=== PATIENT | male | born 1950 | race Caucasian/White ===

== ENCOUNTER 2023-12-29 13:42 | Inpatient (IN) | payer OTHER, MEDICARE ==
[~2023-12-29] VITALS: Ht 177.8 cm; Wt 52.2 kg
[2023-12-29 16:28] LABS: BILIRUBIN,URINE NEGATIVE (Neg); CLARITY,URINE CLEAR (Clear); COLOR,URINE YELLOW (Yellow); GLUCOSE, URINE NEGATIVE (Neg); KETONES,URINE NEGATIVE (Neg); LEUKOCYTE ESTERASE ,URINE NEGATIVE (Neg); NITRITES, URINE NEGATIVE (Neg); OCCULT BLOOD,URINE NEGATIVE (Neg); PH,URINE 7.5 (4.8-8.0); PROTEIN,URINE NEGATIVE (Neg); UROBILINOGEN,URINE 0.2 E.U/dL (0.2-1.0)
[2023-12-29 16:29] LABS: BASOPHILS # (AUTO) 0.1 X10'3 (0-0.2); EOSINOPHILS # (AUTO) 0.2 X10'3 (0-0.9); EOSINOPHILS % (AUTO) 1.8 % (0-6); HEMATOCRIT 42.8 % (42.0-52.0); HEMOGLOBIN 14.5 g/dl (14.0-17.9); LYMPHOCYTES # (AUTO) 1.2 X10'3 (1.1-4.8); LYMPHOCYTES % (AUTO) 13.7 % (21-51); MEAN CORPUSCULAR HEMOGLOBIN 32.9 PG (27.0-31.0); MEAN CORPUSCULAR HGB CONC 33.8 g/dL (33.0-36.5); MEAN CORPUSCULAR VOLUME 97.2 FL (78-98); MEAN PLATELET VOLUME 8.4 FL (7.4-10.4); MONOCYTES # (AUTO) 0.8 X10'3 (0-0.9); MONOCYTES % (AUTO) 8.7 % (2-12); NEUTROPHILS # (AUTO) 6.6 X10'3 (1.8-7.7); NEUTROPHILS % (AUTO) 74.8 % (42-75); PLATELET COUNT 307 X10'3 (140-440); RED CELL DISTRIBUTION WIDTH 13.9 % (11.5-14.5); WHITE BLOOD COUNT 8.8 X10'3 (4.5-11.0)
[2023-12-29 16:33] LABS: UA COLLECTION TYPE CLN CATCH MIDSTREAM
[2023-12-29 16:54] LABS: ALBUMIN 3.7 G/DL (3.4-5.0); ANION GAP 7 (8-16); BLOOD UREA NITROGEN 9 MG/DL (7-18); BUN/CREATININE RATIO 9.2 (10.0-20.0); CALCIUM 8.7 MG/DL (8.5-10.1); CHLORIDE 101 MMOL/L (99-107); CREATININE 0.98 MG/DL (0.60-1.10); GLUCOSE 96 MG/DL (70-104); MAGNESIUM 2.3 MG/DL (1.5-2.4); POTASSIUM 3.6 MMOL/L (3.5-5.1); PRO BRAIN NATRIURETIC PEPTIDE 204 PG/ML (0-450); SODIUM 138 MMOL/L (135-145); TOTAL CARBON DIOXIDE 29.8 MMOL/L (24-32); eCRCL 48 ML/MIN; eGFR 75 ML/MIN
[2023-12-29] MEDS ORDERED: heparin 10,000 units/1 ML INJ IV PRN (18:00)
[2023-12-29] MEDS ORDERED: iohexol 350MG/ML 100ml bottle IV ONE (18:05)
[2023-12-29] MEDS ORDERED: iohexol 350 MG/ML 50ML vial IV ONE (18:05)
[2023-12-29 18:28] LABS: APTT 24 SECONDS (22-32); INR 0.9 INR; PROTHROMBIN TIME 9.8 SECONDS (9.0-12.0)
[2023-12-29] MEDS: heparin 10,000 units/1 ML INJ IV ONE ×2 (18:46→18:48)
[2023-12-29] MEDS: heparin 25,000 UNIT/250ml bag 250 ML IV PRN (18:47)
[2023-12-29] MEDS: MESSAGE TO NURSING IV ONE (18:48)
[2023-12-29] MEDS ORDERED: ASPI-611 PO (19:08)
[2023-12-29] MEDS ORDERED: AMLO5TAB PO (19:08)
[2023-12-29] MEDS ORDERED: magnesium sulf-water 2g/50mL 50 ML IV PRN (20:40)
[2023-12-29] MEDS ORDERED: potassium Cl 20 mEq SR tablet PO PRN ×2 (20:40)
[2023-12-29] MEDS ORDERED: potassium Cl 40MEQ/1/2NS 520ml 520 ML IV PRN (20:40)
[2023-12-29] MEDS ORDERED: mag hydrox/Alum hydrox/simeth 30ml oral suspension PO PRN (20:40)
[2023-12-29] MEDS ORDERED: acetaminophen 325mg tablet PO PRN (20:40)
[2023-12-29] MEDS ORDERED: magnesium sulf-water 4G/100mL 100 ML IV PRN (20:40)
[2023-12-29] MEDS ORDERED: magnesium Cl slow-release 64mg tablet PO PRN (20:40)
[2023-12-29] MEDS ORDERED: ondansetron/PF 4mg/2ml inj IV PRN (20:40)
[2023-12-29] MEDS ORDERED: HYDROcodone/acetaminophen 5mg/325mg tablet PO PRN (20:40)
[2023-12-29 20:57] LABS: ALANINE AMINOTRANSFERASE 24 U/L (12-78); ALBUMIN/GLOBULIN RATIO 1.1 (1.1-1.5); ALKALINE PHOSPHATASE 52 IU/L (46-116); ASPARTATE AMINO TRANSFERASE 24 U/L (10-37); BILIRUBIN,DIRECT 0.2 MG/DL (0-0.3); BILIRUBIN,TOTAL 0.7 MG/DL (0.1-1.0); TOTAL PROTEIN 7.1 G/DL (6.4-8.2)
[2023-12-29 21:07] LABS: HEMOGLOBIN A1C 5.5 % (4.5-6.2)
[2023-12-30] VITALS (15 sets, daily range): BP systolic 124–171; BP diastolic 58–85; PULSE 78–104; RESP 8–16; TEMP 96.8–98; O2SAT 98–100
[2023-12-30 01:30] LABS: PROTHROMBIN TIME 10.4 SECONDS (9.0-12.0)
[2023-12-30] MEDS: MESSAGE TO NURSING IV ONE ×2 (02:18→15:20)
[2023-12-30] MEDS: K and/or MAG REPLACEMENT MC SCH (07:44)
[2023-12-30] MEDS: docusate sod 100mg capsule PO SCH (08:00)
[2023-12-30] MEDS ORDERED: nicotine 21mg patch - 24 hr TD SCH (08:00)
[2023-12-30] MEDS: amLODIPine 5mg tablet PO SCH (08:09)
[2023-12-30] MEDS: nicotine 21mg patch - 24 hr TD SCH (08:09)
[2023-12-30 08:33] LABS: BASOPHILS # (AUTO) 0.1 X10'3 (0-0.2); EOSINOPHILS # (AUTO) 0.3 X10'3 (0-0.9); EOSINOPHILS % (AUTO) 3.8 % (0-6); HEMATOCRIT 44.2 % (42.0-52.0); HEMOGLOBIN 14.7 g/dl (14.0-17.9); LYMPHOCYTES # (AUTO) 1.1 X10'3 (1.1-4.8); LYMPHOCYTES % (AUTO) 16.7 % (21-51); MEAN CORPUSCULAR HEMOGLOBIN 32.5 PG (27.0-31.0); MEAN CORPUSCULAR HGB CONC 33.2 g/dL (33.0-36.5); MEAN CORPUSCULAR VOLUME 97.9 FL (78-98); MEAN PLATELET VOLUME 9.2 FL (7.4-10.4); MONOCYTES # (AUTO) 0.6 X10'3 (0-0.9); MONOCYTES % (AUTO) 9.2 % (2-12); NEUTROPHILS # (AUTO) 4.7 X10'3 (1.8-7.7); NEUTROPHILS % (AUTO) 69.3 % (42-75); PLATELET COUNT 297 X10'3 (140-440); RED BLOOD COUNT 4.51 X10'6 (4.70-6.10); RED CELL DISTRIBUTION WIDTH 14.3 % (11.5-14.5); WHITE BLOOD COUNT 6.8 X10'3 (4.5-11.0)
[2023-12-30 08:49] LABS: ALBUMIN 3.5 G/DL (3.4-5.0); ANION GAP 9 (8-16); BLOOD UREA NITROGEN 9 MG/DL (7-18); BUN/CREATININE RATIO 10.1 (10.0-20.0); CALCIUM 8.8 MG/DL (8.5-10.1); CHLORIDE 100 MMOL/L (99-107); CHOL/HDL RATIO 1.4 (0.00-4.99); CHOLESTEROL 173 MG/DL (0-200); CREATININE 0.89 MG/DL (0.60-1.10); GLUCOSE 92 MG/DL (70-104); HDL CHOLESTEROL 125 MG/DL (35-60); LDL CHOLESTEROL 48 MG/DL (50-100); MAGNESIUM 2.2 MG/DL (1.5-2.4); PHOSPHORUS 3.4 MG/DL (2.3-4.5); POTASSIUM 4.3 MMOL/L (3.5-5.1); SODIUM 137 MMOL/L (135-145); TOTAL CARBON DIOXIDE 27.9 MMOL/L (24-32); TRIGLYCERIDES 41 MG/DL (20-135); eCRCL 53 ML/MIN; eGFR 83 ML/MIN
[2023-12-30] MEDS ORDERED: heparin 10,000 units/1 ML INJ ONE ×2 (16:04→16:05)
[2023-12-30] MEDS ORDERED: sevoflurane 250ml liquid IH ONE (17:17)
[2023-12-30] MEDS ORDERED: morphine 4 MG/ML inj SYRINge IV PRN (17:20)
[2023-12-30] MEDS ORDERED: proCHLORperazine 10 MG/2 ml inj IV PRN (17:20)
[2023-12-30] MEDS ORDERED: labetalol 20mg/4ml (5mg/ml) syringe IV PRN (17:20)
[2023-12-30] MEDS ORDERED: ondansetron/PF 4mg/2ml inj IV PRN ×2 (17:20→20:30)
[2023-12-30] MEDS ORDERED: morphine 2 MG/ML inj. syringe IV PRN (17:20)
[2023-12-30] MEDS ORDERED: enalaprilat dihydrate 2.5mg/2ml vial IV PRN (17:20)
[2023-12-30] MEDS ORDERED: meperidine/PF 25mg/ml syringe IV PRN ×3 (17:20)
[2023-12-30] MEDS ORDERED: midazolam 1 mg/ML 2ml injection ONE (17:21)
[2023-12-30] MEDS ORDERED: fentaNYL /PF 50mcg/ml 5ml ampule ONE (17:21)
[2023-12-30] MEDS ORDERED: propofol inj 20 ML IV ONE (17:26)
[2023-12-30] MEDS ORDERED: LIDOcaine 2% (20mg/ml) 5ml vial ONE (17:26)
[2023-12-30] MEDS ORDERED: dexamethasone sod phosphate 4mg/ml inj. ONE (17:36)
[2023-12-30] MEDS ORDERED: ceFAZolin 1000mg inj ONE ×2 (17:45)
[2023-12-30] MEDS ORDERED: heparin 1,000unit/ml 10ml vial 10 ML ONE (18:04)
[2023-12-30] MEDS ORDERED: albumin (Human) 5% 250ml 250 ML IV ONE (18:21)
[2023-12-30 19:42] LABS: APTT > 139 SECONDS (22-32)
[2023-12-30] MEDS ORDERED: neostigmine methylsulfate 1 MG/ML 10ml vial ONE (20:09)
[2023-12-30] MEDS ORDERED: glycopyrrolate 0.2mg/ml inj ONE (20:09)
[2023-12-30] MEDS ORDERED: HYDROcodone/acetaminophen 10/325mg tab PO PRN (20:30)
[2023-12-30] MEDS ORDERED: naloxone 0.4 mg/ml inj IV PRN (20:30)
[2023-12-30] MEDS ORDERED: HYDROmorphone inj. 0.5 MG/0.5 ML DISP.SYRIN IV PRN (20:30)
[2023-12-30] MEDS: ringers solution, lacted 1,000 ML IV SCH (20:46)
[2023-12-30] MEDS: potassium CL 20mEq in D5-1/2NS 1,000 ML IV SCH (21:11)
[2023-12-30] MEDS: ceFAZolin/D5W- 1GM premix 50 ML IV SCH (23:57)
[2023-12-31] VITALS (18 sets, daily range): BP systolic 107–139; BP diastolic 51–76; PULSE 68–92; RESP 10–18; TEMP 97.2–99.1; O2SAT 82–100
[2023-12-31] MEDS ORDERED: ceFAZolin inj. 1,000 MG in dextrose 5%-water 50ml 50 ML IV SCH
[2023-12-31 06:03] LABS: BASOPHILS % (AUTO) 0.2 % (0-1); EOSINOPHILS % (AUTO) 0 % (0-6); HEMATOCRIT 35.5 % (42.0-52.0); HEMOGLOBIN 12.1 g/dl (14.0-17.9); LYMPHOCYTES # (AUTO) 0.5 X10'3 (1.1-4.8); LYMPHOCYTES % (AUTO) 5.4 % (21-51); MEAN CORPUSCULAR HEMOGLOBIN 33.3 PG (27.0-31.0); MEAN CORPUSCULAR HGB CONC 34.1 g/dL (33.0-36.5); MEAN CORPUSCULAR VOLUME 97.8 FL (78-98); MEAN PLATELET VOLUME 8.9 FL (7.4-10.4); MONOCYTES # (AUTO) 0.8 X10'3 (0-0.9); NEUTROPHILS # (AUTO) 8.6 X10'3 (1.8-7.7); NEUTROPHILS % (AUTO) 86.4 % (42-75); PLATELET COUNT 253 X10'3 (140-440); RED BLOOD COUNT 3.63 X10'6 (4.70-6.10); WHITE BLOOD COUNT 9.9 X10'3 (4.5-11.0)
[2023-12-31 06:13] LABS: PROTHROMBIN TIME 10.5 SECONDS (9.0-12.0)
[2023-12-31 06:16] LABS: ALBUMIN 2.6 G/DL (3.4-5.0); ANION GAP 6 (8-16); BLOOD UREA NITROGEN 9 MG/DL (7-18); BUN/CREATININE RATIO 9.7 (10.0-20.0); CALCIUM 7.8 MG/DL (8.5-10.1); CHLORIDE 100 MMOL/L (99-107); CREATININE 0.93 MG/DL (0.60-1.10); GLUCOSE 185 MG/DL (70-104); MAGNESIUM 1.8 MG/DL (1.5-2.4); PHOSPHORUS 3.4 MG/DL (2.3-4.5); POTASSIUM 4.3 MMOL/L (3.5-5.1); SODIUM 134 MMOL/L (135-145); TOTAL CARBON DIOXIDE 28.4 MMOL/L (24-32); eCRCL 51 ML/MIN; eGFR 79 ML/MIN
[2023-12-31] MEDS: apixaban 5mg tablet PO SCH (20:24)
[2024-01-01] VITALS (7 sets, daily range): BP systolic 125–134; BP diastolic 62–70; PULSE 83–88; RESP 14–16; TEMP 97.3–99.3; O2SAT 97–99
[2024-01-01 07:33] LABS: BASOPHILS % (AUTO) 0.2 % (0-1); EOSINOPHILS % (AUTO) 0.3 % (0-6); HEMATOCRIT 34.2 % (42.0-52.0); HEMOGLOBIN 11.5 g/dl (14.0-17.9); LYMPHOCYTES % (AUTO) 10.8 % (21-51); MEAN CORPUSCULAR HEMOGLOBIN 32.7 PG (27.0-31.0); MEAN CORPUSCULAR HGB CONC 33.6 g/dL (33.0-36.5); MEAN CORPUSCULAR VOLUME 97.4 FL (78-98); MEAN PLATELET VOLUME 8.7 FL (7.4-10.4); MONOCYTES # (AUTO) 1.5 X10'3 (0-0.9); MONOCYTES % (AUTO) 15.5 % (2-12); NEUTROPHILS % (AUTO) 73.2 % (42-75); PLATELET COUNT 233 X10'3 (140-440); RED BLOOD COUNT 3.52 X10'6 (4.70-6.10); RED CELL DISTRIBUTION WIDTH 13.9 % (11.5-14.5); WHITE BLOOD COUNT 9.5 X10'3 (4.5-11.0)
[2024-01-01 07:36] LABS: ALBUMIN 2.4 G/DL (3.4-5.0); ANION GAP 6 (8-16); BLOOD UREA NITROGEN 8 MG/DL (7-18); CALCIUM 7.8 MG/DL (8.5-10.1); CHLORIDE 101 MMOL/L (99-107); CREATININE 0.89 MG/DL (0.60-1.10); GLUCOSE 109 MG/DL (70-104); MAGNESIUM 1.7 MG/DL (1.5-2.4); PHOSPHORUS 3.2 MG/DL (2.3-4.5); SODIUM 133 MMOL/L (135-145); TOTAL CARBON DIOXIDE 26.4 MMOL/L (24-32); eCRCL 53 ML/MIN; eGFR 83 ML/MIN
[2024-01-01 07:50] LABS: PROTHROMBIN TIME 10.7 SECONDS (9.0-12.0)
[2024-01-01] MEDS: aspirin 325mg tablet, delayed-release (Ecotrin) PO SCH (08:35)
[2024-01-01 08:53] LABS: PLATELET ESTIMATE NORMAL; TOTAL CELLS COUNTED 100
[2024-01-01 08:54] LABS: ACANTHOCYTES FEW; SCHISTOCYTES FEW
[2024-01-01] MEDS: ceFOXitin 1 GM/D5W 50mL IVPB 50 ML IV SCH ×2 (12:37→18:09)
[2024-01-02 02:00] VITALS: BP 130/62; PULSE 89; RESP 14; TEMP 97.6; O2SAT 98
[2024-01-02 06:00] VITALS: BP 123/62; PULSE 81; RESP 18; TEMP 98.5; O2SAT 96
[2024-01-02 06:53] LABS: BASOPHILS % (AUTO) 0.2 % (0-1); EOSINOPHILS % (AUTO) 0.3 % (0-6); HEMATOCRIT 35.1 % (42.0-52.0); INR 1.1 INR; LYMPHOCYTES % (AUTO) 8.4 % (21-51); MEAN CORPUSCULAR HEMOGLOBIN 33.3 PG (27.0-31.0); MEAN CORPUSCULAR HGB CONC 34.3 g/dL (33.0-36.5); MEAN PLATELET VOLUME 8.7 FL (7.4-10.4); MONOCYTES # (AUTO) 1.6 X10'3 (0-0.9); MONOCYTES % (AUTO) 13.9 % (2-12); NEUTROPHILS # (AUTO) 8.7 X10'3 (1.8-7.7); NEUTROPHILS % (AUTO) 77.2 % (42-75); PLATELET COUNT 234 X10'3 (140-440); PROTHROMBIN TIME 11.2 SECONDS (9.0-12.0); RED BLOOD COUNT 3.62 X10'6 (4.70-6.10); RED CELL DISTRIBUTION WIDTH 13.7 % (11.5-14.5); WHITE BLOOD COUNT 11.2 X10'3 (4.5-11.0)
[2024-01-02 06:55] LABS: ALBUMIN 2.2 G/DL (3.4-5.0); ANION GAP 8 (8-16); BLOOD UREA NITROGEN 11 MG/DL (7-18); BUN/CREATININE RATIO 13.6 (10.0-20.0); CALCIUM 8.7 MG/DL (8.5-10.1); CHLORIDE 100 MMOL/L (99-107); CREATININE 0.81 MG/DL (0.60-1.10); GLUCOSE 107 MG/DL (70-104); MAGNESIUM 1.8 MG/DL (1.5-2.4); PHOSPHORUS 3.9 MG/DL (2.3-4.5); POTASSIUM 4.2 MMOL/L (3.5-5.1); SODIUM 133 MMOL/L (135-145); TOTAL CARBON DIOXIDE 25.5 MMOL/L (24-32); eCRCL 58 ML/MIN; eGFR > 90 ML/MIN
[2024-01-02 08:00] VITALS: RESP 18; O2SAT 96
[2024-01-02 11:00] VITALS: BP 118/58; PULSE 82; RESP 15; TEMP 99; O2SAT 98
[2024-01-02] MEDS: lactose-reduced food (Ensure Enlive) - 237ml bottle PO SCH (13:00)
[2024-01-02] MEDS: magnesium hydroxide 30ml (MOM) UD suspension PO PRN (13:09)
[2024-01-05] MEDS ORDERED: DOXY100C43 PO (16:55)
== END 2024-01-02 15:13 | DRG 254 ==
LOC: ER 13:44 → ED HOLD 20:41 → EDBEDREQ 12-30 06:58 → ORTHO 4S 12-30 07:37 → CICU 2S 12-30 21:44 → PCU 3S 12-31 12:18
PROVIDERS: ADMIT Internal Medicine Critical Care Medicine; ATTEND Internal Medicine
PROC: B4201ZZ Computerized Tomography (CT Scan) of Abdominal Aorta using Low Osmolar Contrast (ICD-10-PCS; 2023-12-29)
PROC: B4241ZZ Computerized Tomography (CT Scan) of Superior Mesenteric Artery using Low Osmolar Contrast (ICD-10-PCS; 2023-12-29)
PROC: B4281ZZ Computerized Tomography (CT Scan) of Bilateral Renal Arteries using Low Osmolar Contrast (ICD-10-PCS; 2023-12-29)
PROC: B42C1ZZ Computerized Tomography (CT Scan) of Pelvic Arteries using Low Osmolar Contrast (ICD-10-PCS; 2023-12-29)
PROC: B42H1ZZ Computerized Tomography (CT Scan) of Bilateral Lower Extremity Arteries using Low Osmolar Contrast (ICD-10-PCS; 2023-12-29)
PROC: B4211ZZ Computerized Tomography (CT Scan) of Celiac Artery using Low Osmolar Contrast (ICD-10-PCS; 2023-12-29)
PROC: B42H1ZZ Computerized Tomography (CT Scan) of Bilateral Lower Extremity Arteries using Low Osmolar Contrast (ICD-10-PCS; 2023-12-29)
PROC: 04CK0ZZ Extirpation of Matter from Right Femoral Artery, Open Approach (ICD-10-PCS; 2023-12-30)
PROC: 041K0JL Bypass Right Femoral Artery to Popliteal Artery with Synthetic Substitute, Open Approach (ICD-10-PCS; principal; 2023-12-30 17:17)
DX: I73.9 Peripheral vascular disease, unspecified (principal); F17.210 Nicotine dependence, cigarettes, uncomplicated; L60.0 Ingrowing nail; I10 Essential (primary) hypertension; Z88.8 Allergy status to other drugs, medicaments and biological substances; Z91.018 Allergy to other foods; Z79.82 Long term (current) use of aspirin; Z79.899 Other long term (current) drug therapy
CPT/HCPCS: 36415; 71045; 73590; 75635; 76000; 80048; 80061; 80076; 81003; 82948; 83036; 83735; 83880; 84100; 84145; 84484; 85007; 85025; 85610; 85730; 86885; 86900; 86901; 87081; 93306; 93922; 93926; 93970; 96365; 97116; 97161; 97530; 99285; A4618; A6213; A6258; A6449; A6455; A7000; A9272; C1757; C1758; C1768; G0378; J0690; J0694; J1100; J1644; J2003; J2250; J2704; J2710; J3010; J3480; J3490; J7030; J7040; J7120; P9045; Q9967

== ENCOUNTER 2024-05-20 17:37 | Inpatient (IN) | payer OTHER, MEDICARE, MEDICAID ==
[~2024-05-20] VITALS: Ht 177.8 cm; Wt 45.5 kg
[~2024-05-20 17:37] MED LIST: AMLO5TAB PO; ASPI-611 PO
[2024-05-20] MEDS ORDERED: heparin 10,000 units/1 ML INJ IV PRN ×2 (21:05→21:10)
[2024-05-20] MEDS ORDERED: heparin 25,000 UNIT/250ml bag 250 ML IV PRN (21:10)
[2024-05-20] MEDS ORDERED: heparin 10,000 units/1 ML INJ IV ONE (21:10)
[2024-05-20 21:20] LABS: BASOPHILS % (AUTO) 0.4 % (0-1); EOSINOPHILS % (AUTO) 0.1 % (0-6); HEMATOCRIT 41.5 % (42.0-52.0); HEMOGLOBIN 14.1 g/dl (14.0-17.9); LYMPHOCYTES # (AUTO) 1.2 X10'3 (1.1-4.8); LYMPHOCYTES % (AUTO) 9.9 % (21-51); MEAN CORPUSCULAR HEMOGLOBIN 30.8 PG (27.0-31.0); MEAN CORPUSCULAR VOLUME 90.6 FL (78-98); MEAN PLATELET VOLUME 8.6 FL (7.4-10.4); MONOCYTES # (AUTO) 1.3 X10'3 (0-0.9); MONOCYTES % (AUTO) 11.1 % (2-12); NEUTROPHILS # (AUTO) 9.2 X10'3 (1.8-7.7); NEUTROPHILS % (AUTO) 78.5 % (42-75); PLATELET COUNT 222 X10'3 (140-440); RED BLOOD COUNT 4.58 X10'6 (4.70-6.10); RED CELL DISTRIBUTION WIDTH 14.7 % (11.5-14.5); WHITE BLOOD COUNT 11.8 X10'3 (4.5-11.0)
[2024-05-20 21:29] LABS: ALBUMIN 3.4 G/DL (3.4-5.0); ANION GAP 6 (8-16); BLOOD UREA NITROGEN 10 MG/DL (7-18); BUN/CREATININE RATIO 10.6 (10.0-20.0); CALCIUM 8.6 MG/DL (8.5-10.1); CHLORIDE 100 MMOL/L (99-107); CREATININE 0.94 MG/DL (0.60-1.10); GLUCOSE 97 MG/DL (70-104); POTASSIUM 3.9 MMOL/L (3.5-5.1); SODIUM 135 MMOL/L (135-145); TOTAL CARBON DIOXIDE 28.9 MMOL/L (24-32); eCRCL 44 ML/MIN; eGFR 78 ML/MIN
[2024-05-20] MEDS ORDERED: iohexol 350MG/ML 100ml bottle IV ONE (21:30)
[2024-05-20] MEDS ORDERED: iohexol 350 MG/ML 50ML vial IV ONE (21:31)
[2024-05-20] MEDS ORDERED: OMEP-419 PO (21:37)
[2024-05-20] MEDS ORDERED: ATOR40TA PO (21:37)
[2024-05-20] MEDS ORDERED: LOSA-415 PO (21:38)
[2024-05-20] MEDS ORDERED: RIVA10TA PO (21:39)
[2024-05-20] MEDS: HEPARIN DRIP DVT/PE -**PHARMACIST TO DOSE IV ONE (21:41)
[2024-05-20] MEDS: morphine 4 MG/ML inj SYRINge IV ONE (21:52)
[2024-05-20] MEDS: ondansetron/PF 4mg/2ml inj IV ONE (21:52)
[2024-05-20] MEDS: heparin 10,000 units/1 ML INJ IV ONE (22:01)
[2024-05-20] MEDS: MESSAGE TO NURSING IV ONE (22:01)
[2024-05-20] MEDS: heparin 25,000 UNIT/250ml bag 250 ML IV PRN (22:02)
[2024-05-20 22:09] LABS: APTT 27 SECONDS (22-32)
[2024-05-20] MEDS ORDERED: potassium Cl 40MEQ/1/2NS 520ml 520 ML IV PRN (22:35)
[2024-05-20] MEDS ORDERED: magnesium hydroxide 30ml (MOM) UD suspension PO PRN (22:35)
[2024-05-20] MEDS ORDERED: morphine 2 MG/ML inj. syringe IV PRN ×2 (22:35)
[2024-05-20] MEDS ORDERED: ondansetron/PF 4mg/2ml inj IV PRN (22:35)
[2024-05-20] MEDS ORDERED: mag hydrox/Alum hydrox/simeth 30ml oral suspension PO PRN (22:35)
[2024-05-20] MEDS ORDERED: magnesium Cl slow-release 64mg tablet PO PRN (22:35)
[2024-05-20] MEDS ORDERED: magnesium sulf-water 4G/100mL 100 ML IV PRN (22:35)
[2024-05-20] MEDS ORDERED: potassium Cl 20 mEq SR tablet PO PRN ×2 (22:35)
[2024-05-20] MEDS ORDERED: bisacodyl 10mg suppository rectal RC PRN (22:35)
[2024-05-20] MEDS ORDERED: magnesium sulf-water 2g/50mL 50 ML IV PRN (22:35)
[2024-05-20] MEDS ORDERED: acetaminophen 325mg tablet PO PRN (22:35)
[2024-05-20 22:57] LABS: HEMOGLOBIN A1C 5.8 % (4.5-6.2)
[2024-05-20 23:01] LABS: PRO BRAIN NATRIURETIC PEPTIDE 196 PG/ML (0-450)
[2024-05-20] MEDS: normal saline 1000ml 1,000 ML IV SCH (23:34)
[2024-05-21] VITALS (23 sets, daily range): BP systolic 112–160; BP diastolic 31–77; PULSE 66–109; RESP 7–20; TEMP 97.6–97.9; O2SAT 94–100
[2024-05-21 00:04] LABS: BILIRUBIN,URINE NEGATIVE (Neg); CLARITY,URINE CLEAR (Clear); COLOR,URINE YELLOW (Yellow); GLUCOSE, URINE NEGATIVE (Neg); KETONES,URINE NEGATIVE (Neg); LEUKOCYTE ESTERASE ,URINE NEGATIVE (Neg); NITRITES, URINE NEGATIVE (Neg); OCCULT BLOOD,URINE NEGATIVE (Neg); PROTEIN,URINE NEGATIVE (Neg); UROBILINOGEN,URINE 0.2 E.U/dL (0.2-1.0)
[2024-05-21 00:12] LABS: UA COLLECTION TYPE NON-SPECIFIED
[2024-05-21 04:36] LABS: BASOPHILS # (AUTO) 0.1 X10'3 (0-0.2); BASOPHILS % (AUTO) 0.5 % (0-1); EOSINOPHILS % (AUTO) 0.3 % (0-6); HEMATOCRIT 39.5 % (42.0-52.0); HEMOGLOBIN 13.5 g/dl (14.0-17.9); LYMPHOCYTES # (AUTO) 1.3 X10'3 (1.1-4.8); LYMPHOCYTES % (AUTO) 11.8 % (21-51); MEAN CORPUSCULAR HEMOGLOBIN 30.8 PG (27.0-31.0); MEAN CORPUSCULAR HGB CONC 34.1 g/dL (33.0-36.5); MEAN CORPUSCULAR VOLUME 90.5 FL (78-98); MEAN PLATELET VOLUME 8.6 FL (7.4-10.4); MONOCYTES # (AUTO) 1.3 X10'3 (0-0.9); MONOCYTES % (AUTO) 11.8 % (2-12); NEUTROPHILS # (AUTO) 8.5 X10'3 (1.8-7.7); NEUTROPHILS % (AUTO) 75.6 % (42-75); PLATELET COUNT 214 X10'3 (140-440); RED BLOOD COUNT 4.37 X10'6 (4.70-6.10); RED CELL DISTRIBUTION WIDTH 14.6 % (11.5-14.5); WHITE BLOOD COUNT 11.3 X10'3 (4.5-11.0)
[2024-05-21 04:49] LABS: ALANINE AMINOTRANSFERASE 29 U/L (12-78); ALBUMIN 3.1 G/DL (3.4-5.0); ALKALINE PHOSPHATASE 68 IU/L (46-116); ANION GAP 6 (8-16); ASPARTATE AMINO TRANSFERASE 65 U/L (10-37); BILIRUBIN,TOTAL 1.1 MG/DL (0.1-1.0); BLOOD UREA NITROGEN 7 MG/DL (7-18); BUN/CREATININE RATIO 8.3 (10.0-20.0); CALCIUM 8.3 MG/DL (8.5-10.1); CHLORIDE 102 MMOL/L (99-107); CHOL/HDL RATIO 1.3 (0.00-4.99); CHOLESTEROL 132 MG/DL (0-200); CREATININE 0.84 MG/DL (0.60-1.10); GLUCOSE 92 MG/DL (70-104); HDL CHOLESTEROL 104 MG/DL (35-60); LDL CHOLESTEROL 20 MG/DL (50-100); MAGNESIUM 1.9 MG/DL (1.5-2.4); POTASSIUM 3.8 MMOL/L (3.5-5.1); SODIUM 136 MMOL/L (135-145); TOTAL CARBON DIOXIDE 28.1 MMOL/L (24-32); TOTAL PROTEIN 6.3 G/DL (6.4-8.2); TRIGLYCERIDES 31 MG/DL (20-135); eCRCL 49 ML/MIN; eGFR 89 ML/MIN
[2024-05-21] MEDS: MESSAGE TO NURSING IV ONE ×3 (05:01→14:45)
[2024-05-21] MEDS ORDERED: RIVA2.5T (07:48)
[2024-05-21] MEDS ORDERED: OMEP40CA21 PO (07:48)
[2024-05-21] MEDS ORDERED: ATOR40TA PO (07:48)
[2024-05-21] MEDS ORDERED: LOSA-415 PO (07:48)
[2024-05-21] MEDS: amLODIPine 5mg tablet PO SCH (07:50)
[2024-05-21] MEDS: aspirin 81mg, enteric-coated 1 TAB TABLET.DR PO SCH (07:50)
[2024-05-21] MEDS: docusate sod 100mg capsule PO SCH (07:51)
[2024-05-21] MEDS: K and/or MAG REPLACEMENT MC SCH (08:00)
[2024-05-21] MEDS: HYDROmorphone inj. 0.5 MG/0.5 ML DISP.SYRIN IV PRN (09:49)
[2024-05-21] MEDS ORDERED: proCHLORperazine 10 MG/2 ml inj IV PRN (10:25)
[2024-05-21] MEDS ORDERED: meperidine/PF 25mg/ml syringe IV PRN ×3 (10:25)
[2024-05-21] MEDS ORDERED: labetalol 20mg/4ml (5mg/ml) syringe IV PRN (10:25)
[2024-05-21] MEDS ORDERED: morphine 4 MG/ML inj SYRINge IV PRN (10:25)
[2024-05-21] MEDS ORDERED: sevoflurane 250ml liquid IH ONE (10:25)
[2024-05-21] MEDS ORDERED: ondansetron/PF 4mg/2ml inj IV PRN (10:25)
[2024-05-21] MEDS: ringers solution, lacted 1,000 ML IV SCH (10:25)
[2024-05-21] MEDS ORDERED: midazolam 1 mg/ML 2ml injection ONE (10:36)
[2024-05-21] MEDS ORDERED: fentaNYL /PF 50mcg/ml 5ml ampule ONE (10:36)
[2024-05-21] MEDS ORDERED: LIDOcaine 2% jelly 6ml syringe ***for topical use only ONE (10:40)
[2024-05-21] MEDS ORDERED: propofol inj 20 ML IV ONE (10:52)
[2024-05-21] MEDS ORDERED: dexamethasone sod phosphate 4mg/ml inj. ONE (10:52)
[2024-05-21] MEDS ORDERED: rocuronium 10mg/ml inj IV ONE (10:56)
[2024-05-21] MEDS ORDERED: ceFAZolin 1000mg inj ONE ×3 (10:56→13:17)
[2024-05-21] MEDS ORDERED: albumin (Human) 5% 250ml 250 ML IV ONE ×2 (11:59)
[2024-05-21] MEDS ORDERED: phenylephrine 10mg/ml inj. ONE (12:03)
[2024-05-21] MEDS ORDERED: iohexol 300 MG/1 ML 50ml polymer ONE (12:36)
[2024-05-21] MEDS ORDERED: fentaNYL/PF 50MCG/1 ML 2ML syringe ONE (13:08)
[2024-05-21] MEDS ORDERED: vancomycin 1,000mg inj ONE (13:17)
[2024-05-21 13:33] LABS: ISTAT ANION GAP 10 (8-12); ISTAT BUN 6 mg/dL (7-18); ISTAT CL 103 mmol/L (99-107); ISTAT CREATININE 0.6 mg/dL (0.8-1.3); ISTAT GLUCOSE 103 mg/dL (70-104); ISTAT HGB 8.8 g/dl (14.0-17.9); ISTAT Hct 26 %PCV (42-52); ISTAT IONIZED CALCIUM 1.08 mmol/L (1.03-1.32); ISTAT K 3.8 mmol/L (3.5-5.1); ISTAT NA 136 mmol/L (135-145); ISTAT TOTAL CO2 23 mmol/L (24-32); ISTAT eGFR > 90 ML/MIN
[2024-05-21] MEDS ORDERED: naloxone 0.4 mg/ml inj IV PRN (13:45)
[2024-05-21 13:46] LABS: HEMOGLOBIN 9.8 g/dl (14.0-17.9); MEAN CORPUSCULAR HGB CONC 33.8 g/dL (33.0-36.5); MEAN CORPUSCULAR VOLUME 91.8 FL (78-98); MEAN PLATELET VOLUME 8.8 FL (7.4-10.4); PLATELET COUNT 167 X10'3 (140-440); RED BLOOD COUNT 3.16 X10'6 (4.70-6.10); RED CELL DISTRIBUTION WIDTH 14.3 % (11.5-14.5); WHITE BLOOD COUNT 7.9 X10'3 (4.5-11.0)
[2024-05-21 14:09] LABS: APTT > 139 SECONDS (22-32)
[2024-05-21] MEDS: morphine 2 MG/ML inj. syringe IV PRN (14:12)
[2024-05-21 15:06] LABS: ABG BASE EXCESS -5.2 mmol/L (-2.0-3.0); ABG HCO3 19.4 mmol/L (21.0-28.0); ABG OXYGEN SATURATION 95.1 % (94.0-98.0); ABG PCO2 (T) 33.9 mmHg (35.0-48.0); ABG PH (T) 7.373 (7.350-7.450); ABG PO2 (T) 77.7 mmHg (83.0-108.0); FCOHb 0.5 % (0.5-1.5); FHHb 4.9 % (0.0-5.0); FMetHb 0.3 % (0.0-1.5); FO2Hb 94.3 % (94.0-98.0); MODE ROOM AIR; PATIENT TEMPERATURE 36.5; TOTAL HEMOGLOBIN 11.4 G/dl (13.5-17.5)
[2024-05-21] MEDS ORDERED: ceFAZolin 1GM/D5W- ADD-VANTAGE 50 ML IV SCH (16:00)
[2024-05-21 16:01] LABS: APTT 64 SECONDS (22-32)
[2024-05-21] MEDS: ceFAZolin/D5W- 1GM premix 50 ML IV SCH (17:24)
[2024-05-21] MEDS: apixaban 5mg tablet PO SCH (17:59)
[2024-05-21] MEDS: NUT.TX.IMPAIRED DIGEST FXN (Ensure Clear) 237 ML PO SCH (18:19)
[2024-05-21] MEDS: HYDROcodone/acetaminophen 5mg/325mg tablet PO PRN (19:00)
[2024-05-22] VITALS (18 sets, daily range): BP systolic 104–154; BP diastolic 51–71; PULSE 63–107; RESP 8–19; TEMP 98–98.6; O2SAT 95–98
[2024-05-22 02:59] LABS: BASOPHILS % (AUTO) 0.3 % (0-1); EOSINOPHILS % (AUTO) 0 % (0-6); HEMATOCRIT 25.4 % (42.0-52.0); HEMOGLOBIN 8.8 g/dl (14.0-17.9); LYMPHOCYTES # (AUTO) 0.9 X10'3 (1.1-4.8); LYMPHOCYTES % (AUTO) 6.6 % (21-51); MEAN CORPUSCULAR HEMOGLOBIN 31.4 PG (27.0-31.0); MEAN CORPUSCULAR HGB CONC 34.8 g/dL (33.0-36.5); MEAN CORPUSCULAR VOLUME 90.4 FL (78-98); MEAN PLATELET VOLUME 9.7 FL (7.4-10.4); MONOCYTES # (AUTO) 1.7 X10'3 (0-0.9); MONOCYTES % (AUTO) 11.7 % (2-12); NEUTROPHILS # (AUTO) 11.6 X10'3 (1.8-7.7); NEUTROPHILS % (AUTO) 81.4 % (42-75); PLATELET COUNT 166 X10'3 (140-440); RED BLOOD COUNT 2.81 X10'6 (4.70-6.10); RED CELL DISTRIBUTION WIDTH 14.5 % (11.5-14.5); WHITE BLOOD COUNT 14.2 X10'3 (4.5-11.0)
[2024-05-22 03:14] LABS: ALANINE AMINOTRANSFERASE 23 U/L (12-78); ALBUMIN 2.3 G/DL (3.4-5.0); ALKALINE PHOSPHATASE 42 IU/L (46-116); ANION GAP 5 (8-16); ASPARTATE AMINO TRANSFERASE 51 U/L (10-37); BILIRUBIN,TOTAL 0.8 MG/DL (0.1-1.0); BLOOD UREA NITROGEN 9 MG/DL (7-18); BUN/CREATININE RATIO 12.7 (10.0-20.0); CALCIUM 7.6 MG/DL (8.5-10.1); CHLORIDE 105 MMOL/L (99-107); CREATININE 0.71 MG/DL (0.60-1.10); GLUCOSE 107 MG/DL (70-104); MAGNESIUM 1.7 MG/DL (1.5-2.4); SODIUM 137 MMOL/L (135-145); TOTAL CARBON DIOXIDE 27.2 MMOL/L (24-32); TOTAL PROTEIN 4.7 G/DL (6.4-8.2); eCRCL 58 ML/MIN; eGFR > 90 ML/MIN
[2024-05-22] MEDS: HYDROmorphone inj. 0.5 MG/0.5 ML DISP.SYRIN IV PRN (06:40)
[2024-05-22] MEDS: lactose-reduced food (Ensure Enlive) - 237ml bottle PO SCH (13:00)
[2024-05-22] MEDS: HYDROcodone/acetaminophen 10/325mg tab PO PRN (14:05)
[2024-05-23 02:00] VITALS: BP 113/59; PULSE 92; RESP 18; TEMP 99.3; O2SAT 98
[2024-05-23 06:17] LABS: BASOPHILS % (AUTO) 0.1 % (0-1); EOSINOPHILS % (AUTO) 0.4 % (0-6); HEMATOCRIT 22.9 % (42.0-52.0); HEMOGLOBIN 7.9 g/dl (14.0-17.9); LYMPHOCYTES # (AUTO) 1.1 X10'3 (1.1-4.8); LYMPHOCYTES % (AUTO) 10.5 % (21-51); MEAN CORPUSCULAR HEMOGLOBIN 31.3 PG (27.0-31.0); MEAN CORPUSCULAR HGB CONC 34.5 g/dL (33.0-36.5); MEAN CORPUSCULAR VOLUME 90.7 FL (78-98); MEAN PLATELET VOLUME 9.3 FL (7.4-10.4); MONOCYTES # (AUTO) 1.4 X10'3 (0-0.9); MONOCYTES % (AUTO) 13.6 % (2-12); NEUTROPHILS # (AUTO) 7.7 X10'3 (1.8-7.7); NEUTROPHILS % (AUTO) 75.4 % (42-75); PLATELET COUNT 182 X10'3 (140-440); RED BLOOD COUNT 2.52 X10'6 (4.70-6.10); RED CELL DISTRIBUTION WIDTH 14.3 % (11.5-14.5); WHITE BLOOD COUNT 10.2 X10'3 (4.5-11.0)
[2024-05-23 06:37] LABS: ALANINE AMINOTRANSFERASE 23 U/L (12-78); ALBUMIN 2.1 G/DL (3.4-5.0); ALBUMIN/GLOBULIN RATIO 0.8 (1.1-1.5); ALKALINE PHOSPHATASE 42 IU/L (46-116); ANION GAP 5 (8-16); ASPARTATE AMINO TRANSFERASE 60 U/L (10-37); BILIRUBIN,TOTAL 0.4 MG/DL (0.1-1.0); BLOOD UREA NITROGEN 10 MG/DL (7-18); BUN/CREATININE RATIO 14.1 (10.0-20.0); CALCIUM 7.7 MG/DL (8.5-10.1); CHLORIDE 105 MMOL/L (99-107); CREATININE 0.71 MG/DL (0.60-1.10); GLUCOSE 94 MG/DL (70-104); MAGNESIUM 1.9 MG/DL (1.5-2.4); POTASSIUM 3.6 MMOL/L (3.5-5.1); SODIUM 139 MMOL/L (135-145); TOTAL CARBON DIOXIDE 28.6 MMOL/L (24-32); TOTAL PROTEIN 4.7 G/DL (6.4-8.2); eCRCL 58 ML/MIN; eGFR > 90 ML/MIN
[2024-05-23 07:01] VITALS: BP 117/50; PULSE 85; RESP 14; TEMP 97.6; O2SAT 94
[2024-05-23 08:00] VITALS: RESP 16
[2024-05-23] MEDS ORDERED: CEPH-585 PO (10:49)
[2024-05-23 11:00] VITALS: BP 107/55; PULSE 97; RESP 12; TEMP 98; O2SAT 98
[2024-05-23 15:00] VITALS: BP 144/65; PULSE 92; RESP 12; TEMP 98; O2SAT 97
[2024-05-23] MEDS: cephalexin 500mg capsule PO SCH (15:40)
[2024-05-23] MEDS ORDERED: RIVA10TA PO (17:18)
[2024-05-23] MEDS ORDERED: atorvastatin 20mg tablet PO SCH (21:00)
[2024-05-24] MEDS ORDERED: rivaroxaban 10mg tablet PO SCH (08:00)
== END 2024-05-23 17:45 | disposition home health service (06) | DRG 253 ==
LOC: ER 17:38 → ED HOLD 22:38 → PCU 3S 05-21 01:43 → CICU 2S 05-21 14:59 → PCU 3S 05-22 15:55
PROVIDERS: ADMIT Internal Medicine; ATTEND Internal Medicine
PROC: 041 Lower Arteries, Bypass (ICD-10-PCS; 2024-05-21)
PROC: 06BY0ZZ Excision of Lower Vein, Open Approach (ICD-10-PCS; 2024-05-21)
PROC: 04CK0ZZ Extirpation of Matter from Right Femoral Artery, Open Approach (ICD-10-PCS; principal; 2024-05-21 10:25)
DX: T82.898A Other specified complication of vascular prosthetic devices, implants and grafts, initial encounter (principal); D62 Acute posthemorrhagic anemia; I70.201 Unspecified atherosclerosis of native arteries of extremities, right leg; D72.829 Elevated white blood cell count, unspecified; E78.5 Hyperlipidemia, unspecified; F17.200 Nicotine dependence, unspecified, uncomplicated; I10 Essential (primary) hypertension; K21.9 Gastro-esophageal reflux disease without esophagitis; Z79.01 Long term (current) use of anticoagulants; Z91.018 Allergy to other foods; Z88.8 Allergy status to other drugs, medicaments and biological substances; Y83.2 Surgical operation with anastomosis, bypass or graft as the cause of abnormal reaction of the patient, or of later complication, without mention of misadventure at the time of the procedure; Y92.89 Other specified places as the place of occurrence of the external cause
CPT/HCPCS: 36415; 36600; 73590; 75635; 76000; 80047; 80048; 80053; 80061; 81003; 82803; 82948; 83036; 83735; 83880; 84132; 85018; 85025; 85027; 85610; 85730; 86885; 86900; 86901; 86920; 87081; 93926; 96365; 96375; 96376; 97116; 97161; 97530; 99285; A4618; A5200; A6213; A6253; A6258; A6446; A6449; A6455; A7000; C1757; C1758; G0378; J0690; J1100; J1171; J1644; J2003; J2250; J2270; J2371; J2405; J2704; J3010; J3370; J3490; J7030; J7040; J7120; P9045; Q9967